=== PATIENT | female | born 1990 | race Asian ===

== ENCOUNTER 2020-12-03 03:57 | Emergency (ER) | payer BC ==
[~2020-12-03] VITALS: Ht 170.2 cm; Wt 56.7 kg
[2020-12-03 03:58] VITALS: BP 117/81
[2020-12-03] MEDS ORDERED: LIDOCAINE HCL 2% TOP JELLY 5ML TOP ONE (05:30)
[2020-12-03] MEDS ORDERED: ACETAMINOPHEN 500 MG TAB PO ONE (06:15)
== END 2020-12-03 06:09 | disposition home or self-care (01) ==
LOC: ER 04:02
DX: K60.2 Anal fissure, unspecified (principal)

== ENCOUNTER 2020-12-09 01:30 | Emergency (ER) | payer BC ==
[~2020-12-09] VITALS: Ht 170.2 cm; Wt 56.7 kg
[2020-12-09 01:36] VITALS: BP 114/70
== END 2020-12-09 05:28 | disposition left against medical advice (07) ==
LOC: ER 01:30
DX: N76.0 Acute vaginitis (principal); Z53.21 Procedure and treatment not carried out due to patient leaving prior to being seen by health care provider

== ENCOUNTER 2020-12-11 15:07 | Emergency (ER) | payer BC ==
[~2020-12-11] VITALS: Ht 170.2 cm; Wt 55.3 kg
[2020-12-11 16:02] VITALS: BP 136/79
== END 2020-12-11 18:00 | disposition home or self-care (01) ==
LOC: ER 15:07
DX: K61.0 Anal abscess (principal)